=== PATIENT | female | born 1975 | race Caucasian/White ===

== ENCOUNTER 2024-10-02 11:55 | Emergency (ER) | payer OTHER, MEDICARE ==
[~2024-10-02] VITALS: Ht 157.5 cm; Wt 64.9 kg
--- NOTE | 2024-10-02 12:06 | ERN ---
ED Note History of Present Illness Stated Complaint: ALTERED MENTAL STATUS Chief Complaint: Altered Mental Status Time Seen by MD: 11:56 Dictation: PATIENT IS A 49-YEAR-OLD FEMALE WHO IS A POOR HISTORIAN HERE WITH HER FRIEND. HE BROUGHT HER IN BECAUSE SHE HAD A FALL ON SATURDAY AND WAS FOUND ON THE GROUND. SHE WAS TRANSPORTED TO [facility] IN [place] AND SIGNED OUT AGAINST MEDICAL ADVICE THE NEXT DAY. HE STATES SHE LIVES BY HERSELF HOWEVER SINCE THEN SHE HAS HAD ALTERED MENTAL STATUS AND HAS BEEN INCONTINENT OF URINE. SHE IS ABLE TO NABILA ANSWER SIMPLE QUESTIONS HOWEVER SHE HAS A AN ABRASION NOTED TO HER LEFT LATERAL ORBITAL AREA. SPEECH IS CLEAR SHE IS MOVING ALL EXTREMITIES. PUPILS ARE EQUAL IN TRIAGE NO HEMOTYMPANUM NO MIDLINE SPINE PAIN. PATIENT TEARFUL WITH QUESTIONING ABOUT WHAT HAPPENED. THE MAN WHO WAS WITH HER SAID THAT HER MOTHER WANTED HER BROUGHT TO [facility] FOR FURTHER EVALUATION AND TREATMENT. Allergies: Coded Allergies: No Known Drug Allergies (Verified Allergy, Unknown, 03/19/16) Past Medical History Past Medical History: Unable to Obtain Surgical History: Unknown History: Not Applicable RN Note Reviewed/Agreed w/PFSH: Yes Review of System Dictation CONSTITUTIONAL: NEGATIVE EXCEPT FOR HPI HEAD/FACE: NEGATIVE EXCEPT FOR HPI EENT: NEGATIVE EXCEPT FOR HPI RESPIRATORY: NEGATIVE EXCEPT FOR HPI GASTROINTESTINAL/ABDOMINAL: NEGATIVE EXCEPT FOR HPI GENITOURINARY: NEGATIVE EXCEPT FOR HPI INCONTINENT OF URINE MUSCULOSKELETAL: NEGATIVE EXCEPT FOR HPI INTEGUMENTARY: NEGATIVE EXCEPT FOR HPI NEUROLOGICAL/PSYCH: NEGATIVE EXCEPT FOR HPI ALTERED MENTAL STATUS HEMATOLOGIC/LYMPHATIC: NEGATIVE EXCEPT FOR HPI ALL SYSTEMS NEGATIVE, EXCEPT NOTED ABOVE. 13 POINT REVIEW OF SYSTEMS ASSESSED AND ALL NEGATIVE EXCEPT FOR ABOVE. Initial Vital Sign VS Vital Signs Date Time Temp Pulse Resp B/P (MAP) Pulse Ox O2 Delivery O2 Flow Rate FiO2 10/02/24 11:56 98.4 80 18 143/90 98 Room Air 0 Physical Exam Dictation VITAL SIGNS REVIEWED GENERAL APPEARANCE: ALERT, ORIENTED X TWO. ABRASION TO LEFT LATERAL ORBITAL AREA. EOMS INTACT PERRLA. EYES: PERRL, PINK CONJUNCTIVAS, EYELID NO TRAUMA, ANTERIOR CHAMBER WITH ARCUS SENILIS. EARS: PINNAS INTACT AND NO SIGNS OF TRAUMA OR ERYTHEMA EAR CANALS CLEAR AND NO DISCHARGE TM NO ERYTHEMA NO HEMOTYMPANUM NOSE: NO DISCHARGE, NO BLEEDING. OROPHARYNX: MOUTH NORMAL, TONGUE PINK, PHARYNX CLEAR,NO ERYTHEMA, TONSILS NO EXUDATES, NO ABSCESSES NOTED, MUCOUS MEMBRANE MOIST NECK: SUPPLE, NON-TENDER, NO THYROMEGALY, NO MASSES, NO JVD, NO BRUITS NO MIDLINE SPINE PAIN BREAST:DEFERRED CHEST:NO TENDERNESS, NO CREPITUS, NO PARADOXICAL MOVEMENT, NO RETRACTIONS LUNGS:CLEAR, WELL-VENTILATED, SYMMETRIC, NO RALES, NO WHEEZING, NO RHONCHI, NO STRIDOR, GOOD BREATH SOUNDS BILATERALLY HEART: REGULAR RATE, REGULAR RHYTHM, NO MURMUR, NO GALLOPS VASCULAR: NO PERIPHERAL EDEMA, ABDOMEN: SOFT, POSITIVE BOWEL SOUNDS, NONDISTENDED, NO GUARDING, NONTENDER, NO REBOUND, NO MASSES NO HEPATOMEGALY, NO SPLENOMEGALY, NO TOM'S SIGN, NO HERNIAS. RECTAL: DEFERRED GENITAL: DEFERRED NEUROLOGICAL: NORMAL SPEECH, MOTOR FUNCTION INTACT, SENSORY FUNCTION INTACT PATIENT ALERT AND ORIENTED TIMES 2-3 HOWEVER MENTATION APPEAR SLOW SHE IS FOLLOWING COMMANDS AND ANSWERING QUESTIONS STATES SHE COULD NOT RECALL WHAT HAPPENED ON THE FALL MUSCULOSKELETAL: NECK NONTENDER, FULL RANGE OF MOTION, BACK NONTENDER, FULL RANGE OF MOTION, EXTREMITIES: NONTENDER, FULL RANGE OF MOTION SKIN: COLOR PINK, DRY, NO TURGOR, NO RASH, NO LACERATIONS, NO ABRASIONS, NO CONTUSIONS. LYMPHATIC: DEFERRED Results (Laboratory/Radiology) Laboratory/Radiology Laboratory Tests Test 10/02/24 12:09 10/02/24 12:33 White Blood Count 6.5 K/uL (4.8-10.8) Red Blood Count 3.99 MIL/uL (4.00-5.50) L Hemoglobin 11.8 g/dL (12.0-16.0) L Hematocrit 34.4 % (36-48) L Mean Corpuscular Volume 86.2 fL (79-99) Mean Corpuscular Hemoglobin 29.6 pg (27.0-33.0) Mean Corpuscular Hemoglobin Concent 34.3 g/dL (32.0-36.0) Red Cell Distribution Width 12.2 % (11.0-15.5) Platelet Count 240 K/uL (130-400) Mean Platelet Volume 10.3 fL (7.5-10.5) Immature Granulocyte % (Auto) 0.3 % (0-1) Neutrophils (%) (Auto) 74.5 % (40.0-77.0) Lymphocytes (%) (Auto) 16.2 % (21.0-51.0) L Monocytes (%) (Auto) 8.3 % (3.0-13.0) Eosinophils (%) (Auto) 0.2 % (0.0-8.0) Basophils (%) (Auto) 0.5 % (0.0-5.0) Neutrophils # (Auto) 4.8 K/uL (1.8-7.7) Lymphocytes # (Auto) 1.1 K/uL (1.0-4.8) Monocytes # (Auto) 0.5 K/uL (0.1-1.0) Eosinophils # (Auto) 0.01 K/uL (0.00-0.70) Basophils # (Auto) 0.03 K/uL (0.00-0.20) Absolute Immature Granulocyte (auto 0.02 K/uL (0-1) Nucleated Red Blood Cells 0.0 % (0.0-0.19) Sodium Level 142 mmol/L (136-145) Potassium Level 3.0 mmol/L (3.5-5.1) *L Chloride Level 105 mmol/L (101-111) Carbon Dioxide Level 28 mmol/L (21-32) Blood Urea Nitrogen 7 mg/dL (7-18) Creatinine 0.5 mg/dL (0.5-1.0) Glomerular Filtration Rate Calc 115 mL/min (>90) Random Glucose 123 mg/dL (70-105) H Total Calcium 9.1 mg/dL (8.5-10.1) Ammonia < 10 umol/L (11-32) L Troponin I High Sensitivity 7 ng/L (4-50) Serum Alcohol < 3 mg/dL (0-10) Urine Color YELLOW (YELLOW) Urine Appearance CLOUDY (CLEAR) H Urine pH 6.5 (5.0-8.0) Urine Specific [place] 1.028 (1.001-1.031) Urine Protein 70 mg/dL (NEGATIVE) H Urine Glucose (UA) NEGATIVE mg/dL (NEGATIVE) Urine Ketones 150 mg/dL (NEGATIVE) H Urine Occult Blood +- (TRACE) (NEGATIVE) H Urine Nitrate NEGATIVE (NEGATIVE) Urine Bilirubin NEGATIVE mg/dL (NEGATIVE) Urine Urobilinogen 2.0 mg/dL (0.2-1.0) H Urine Leukocyte Esterase 500 Jose/uL (NEGATIVE) H Urine RBC 11-25 /HPF (0-1) H Urine WBC 51-100 /HPF (0-1) H Urine Squamous Epithelial Cells MANY /HPF (0-2) Urine Non-Squamous Epithelial Cells 2-5 /HPF (0-2) Urine Bacteria None /HPF (None Seen) Urine Opiates Screen NEGATIVE (NEGATIVE) Urine Barbiturates Screen NEGATIVE (NEGATIVE) Urine Phencyclidine Screen NEGATIVE (NEGATIVE) Urine Amphetamines Screen NEGATIVE (NEGATIVE) Urine Benzodiazepines Screen NEGATIVE (NEGATIVE) Urine Cocaine Screen NEGATIVE (NEGATIVE) Urine Marijuana (THC) Screen POSITIVE (NEGATIVE) H 1432/CT OF THE HAVE NEGATIVE READ BY HUGO RADIOLOGIST Labs Reviewed?: Yes EKG: (+) NSR EKG Comment: EKG NORMAL SINUS RHYTHM/HEART RATE 81/AXIS NORMAL/NO ECTOPY ED Course ED Course Orders Procedure Category Date Status Time Ct Head/Brain W/O CT 10/02/24 Resulted Contrast 11:57 Ammonia LAB 10/02/24 Complete 11:57 Drug Screen Urine LAB 10/02/24 Complete 11:57 Cbc With Differential LAB 10/02/24 Complete 11:57 Troponin I High LAB 10/02/24 Complete Sensitivity 11:57 Urinalysis Profile LAB 10/02/24 Complete 11:57 12 Lead Ekg Tracing- EKG 10/02/24 Complete Technical 11:57 Basic Metabolic Panel LAB 10/02/24 Complete 11:57 Alcohol, Blood LAB 10/02/24 Complete 12:01 12 Lead Ekg Tracing- EKG 10/02/24 Logged Technical 12:14 Potassium Bicarb/Cit PHA 10/02/24 Complete Ac 25meq (K-Lyte Ta 13:30 Culture Urine PATRICIA 10/02/24 In Process 14:23 Amox/Clav 875/125mg PHA 10/02/24 Complete Tab (Augmentin 875-1 14:56 Current Medications Medications (Trade) Dose Ordered Sig/Telma Route PRN Reason Start Time Stop Time Status Last Admin Dose Admin Amoxicillin/ Clavulanate Potassium (Augmentin 875-125 Tablet) 1 each ONCE STAT PO 10/02/24 14:56 10/02/24 14:59 DC 10/02/24 15:15 Potassium Bicarbonate (K-Lyte Tablet Eff 25 Meq Tablet.eff) 25 meq ONCE ONCE PO 10/02/24 13:30 10/02/24 13:31 DC 10/02/24 14:34 Vital Signs Date Time Temp Pulse Resp B/P (MAP) Pulse Ox O2 Delivery O2 Flow Rate FiO2 10/02/24 11:56 98.4 80 18 143/90 98 Room Air 0 1500/NO CHANGE IN MENTAL STATUS AT THIS TIME. CT LABS AMMONIA DRUG SCREEN NEGATIVE EXCEPT FOR MARIJUANA. MOTHER CALLED AND SPOKE TO QUINCY MUD JACK NOZZLE WORKER NURSE AND TOLD QUINCY THE PATIENT LAST NIGHT WAS HAVING DELUSIONS OF PERSECUTION AND SOMEBODY WAS OUT TO KILLER. PATIENT HAS A HISTORY OF BIPOLAR AND SCHIZOPH MIKE. WE WILL HAVE PATIENT IS SCREENED BY ALISON.1804/ 180/PATIENT NOW ALERT AND ORIENTED X4 SPEECH IS CLEAR. CONSTANCE ROSAS HERE AND PATIENT WAS SCREENED FOR INPATIENT PLACEMENT AND WAS REFUSED. SHE DID NOT MEET CRITERIA AT THIS TIME PATIENT AGREES TO FOLLOW UP WITH THEM OUTPATIENT. SHE WILL BE DISCHARGED HOME TO FAMILY TO FOLLOW UP IN THE NEXT FEW DAYS. Medical Decision Making MDM MDM: DIFFERENTIAL DIAGNOSIS: CLOSED HEAD INJURY/CONCUSSION/SUBDURAL HEMATOMA/POLYDRUG ABUSE/ELECTROLYTE IMBALANCE/DEHYDRATION/ALCOHOL INTOXICATION RATIONALE: TESTS CONSIDERED AND ORDERED SECONDARY TO SHARED DECISION MAKING INCLUDE: EKG/LABS/RADIOLOGY PREVIOUS OUTSIDE RECORDS REVIEWED: OLD ER VISITS. RISK OF COMPLICATION AND/OR MORBIDITY OR MORTALITY OF PATIENT MANAGEMENT: NONE MEDICATIONS-PER MEDICATION RECONCILIATION NEED FOR HOSPITALIZATION: PATIENT DOES NOT MEET CRITERIA FOR HOSPITALIZATION. NO NEED FOR EMERGENCY MAJOR/MINOR SURGERY: NO THERE ARE NO SOCIAL CONCERNS WITH THIS PATIENT. PRESCRIPTION DRUG MANAGEMENT AUGMENTIN/K-DUR PRESCRIPTIONS WILL INCLUDE SYMPTOMATIC CARE PATIENT'S PRIOR EXTERNAL MEDICAL RECORDS FROM OTHER ER VISITS WERE REVIEWED BY ME INDICATED. PRIOR TESTING AND RESULTS FROM PREVIOUS VISITS WERE REVIEWED. PRIOR TESTS WERE TAKEN INTO ACCOUNT WITH MEDICAL DECISION MAKING AND RESOURCE UTILIZATION, INDEPENDENT HISTORIAN/HISTORIANS WERE USED TO OBTAIN COMPLETE MEDICAL HISTORY. I INDEPENDENTLY INTERPRETED THE TEST THAT WERE PERFORMED, RESULTS WERE REVIEWED BY ME AND CONSIDERED FINDINGS ON RADIOLOGY IF ORDERED. MEDICAL MANAGEMENT AND EXAMINATION INTERPRETATION DISCUSSIONS WERE HAD BY ME WITH OTHER QUALIFIED HEALTHCARE PROFESSIONALS INDICATED FOR THE PATIENT'S CARE. DX & DISP Disposition: Discharge Departure Impression: Primary Impression: Facial contusion Additional Impressions: Acute cystitis with hematuria, Hypokalemia, Dehydr ation, Concussion Condition: Stable Scripts Potassium Chloride (K-Dur/Klor-Con) 20 Meq Ertab 20 MEQ PO BID for 3 Days, #6 TAB.EC Prov: KENYETTA ROBERTS GOLD MINER BLASTING 10/02/24 Amoxicillin/Potassium Clav (Amox Tr-K Clv 875-125 mg Tab) 875 Mg-125 Mg Tablet 1 EACH PO BID for 5 Days, #10 TAB 0 Refills Prov: KENYETTA ROBERTS NP 10/02/24 Additional Instructions: FOLLOW-UP WITH PRIMARY CARE PROVIDER IN 1 TO 2 DAYS. TAKE MEDICATIONS DIRE CTED HERE IN THE EMERGENCY ROOM. OKAY TO CONTINUE HOME MEDICATIONS UNLESS OTHERWISE DISCUSSED DURING YOUR VISIT IN THE EMERGENCY ROOM TODAY. RETURN TO YOUR NEAREST EMERGENCY ROOM IF SYMPTOMS WORSEN OR IF THERE IS NO IMPROVEMENT. CALL 911 IF YOU NEED IMMEDIATE ASSISTANCE. TAKE TYLENOL OR MOTRIN [id number] NEEDED AND IF NO CONTRAINDICATIONS ARE PRESENT. INCREASE ORAL HYDRATION. A WOUND CULTURE OR URINE CULTURE WAS ORDERED HERE IN THE EMERGENCY ROOM DEPARTMENT PLEASE FOLLOW-UP WITH PRIMARY CARE PROVIDER AND ADVISE THEM TO GET REPEAT PORTS FROM OUR FACILITY. IF YOU HAD ANY ELIE WRAP/SPLINTS THAT WERE APPLIED HERE, PLEASE DO NOT REMOVE THEM UNTIL YOU SEE YOUR PRIMARY CARE OR SPECIALTY. TAKE AUGMENTIN DIRECTED UNTIL GONE. TAKE K-DUR DIRECTED WITH FOOD TWICE A DAY FOR THE NEXT THREE DAYS UNTIL GONE. CONTINUE ALL YOUR MEDICATIONS AT HOME FROM YOUR DOCTOR, SEE YOUR PRIMARY CARE DOCTOR IN 2-3 DAYS. Referrals: CHICA VILLALOBOS MD (PCP) Time of Disposition: 18:07 I have reviewed the case, and I agree with, Diagnosis and Plan KENYETTA ROBERTS NP Oct 02, 2024 12:05
--- NOTE | 2024-10-02 12:09 | NUR ---
MOTHER PHONE NUMBER
--- NOTE | 2024-10-02 12:12 | NUR ---
AT THIS TIME THE PATIENT IS ORIENTED TO PERSON PLACE TIME AND SITUATION. THE PATIENT IS SOFT SPOKEN. FOLLOWS COMMANDS. ONE TO ONE SITTER DUE TO REPORTED ALTERED MENTAL STATUS.
--- NOTE | 2024-10-02 12:20 | EKG ---
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
[2024-10-02 12:21] LABS: IMMATURE GRANULOCYTE ABSOLUTE 0.02 K/uL (0-1); NUCLEATED RED BLOOD CELLS 0.0 % (0.0-0.19); PLATELET COUNT (AUTO) 240 K/uL (130-400); RED BLOOD CELL COUNT(AUTO) 3.99 MIL/uL (4.00-5.50); RED CELL DISTRIBUTION WIDTH 12.2 % (11.0-15.5); WHITE BLOOD COUNT (AUTO) 6.5 K/uL (4.8-10.8)
--- NOTE | 2024-10-02 12:35 | NUR ---
TOILETED FOR UA. NO URINE. HAD X1 BM
[2024-10-02 12:47] LABS: CREATININE 0.5 mg/dL (0.5-1.0); GLOMERULAR FILTR. RATE CALC 115 mL/min (>90); GLUCOSE,RANDOM 123 mg/dL (70-105); SODIUM SERUM 142 mmol/L (136-145); UREA NITROGEN, BLOOD 7 mg/dL (7-18)
[2024-10-02 14:19] LABS: AMPHET/METH SCREEN,URINE NEGATIVE (NEGATIVE); APPEARANCE,URINE CLOUDY (CLEAR); BARBITURATE SCREEN, URINE NEGATIVE (NEGATIVE); CANNABINOID SCREEN,URINE POSITIVE (NEGATIVE); COCAINE SCREEN,URINE NEGATIVE (NEGATIVE); GLUCOSE, URINE (UA) NEGATIVE (NEGATIVE); LEUKOCYTE ESTERASE ,URINE 500 Leu/uL (NEGATIVE); NITRATE,URINE NEGATIVE (NEGATIVE); OCCULT BLOOD,URINE +- (TRACE) (NEGATIVE)
[2024-10-02 14:22] LABS: ADD UA MICROSCOPIC YES
[2024-10-02 14:25] LABS: SQUAMOUS EPITHELIAL CELL,UR MANY /HPF (0-2)
--- NOTE | 2024-10-02 15:04 | NUR ---
SPOKE TO TROPICAL SCREENER IN REGARDS TO PT, SCREENER WILL BE BY TO COME SCREEN PT.
[2024-10-02] MEDS: AMOX/CLAV 875/125MG TAB PO STA (15:15)
--- NOTE | 2024-10-02 15:16 | NUR ---
PER PATIENT'S MOTHER: THE PATIENT HAS A HISTORY OF SCHIZOPHRENIA. PARENT REPORTS DELUSIONS OF PERSECUTION AND VISUAL HALLUCINATIONS. STATES PATIENT CALLED HER LAST NIGHT TO REPORT PEOPLE WERE IN HER HOME ATTEMPTING TO CAUSE HER HARM.
--- NOTE | 2024-10-02 15:19 | NUR ---
AT THIS TIME THE PATIENT DENIES ANY THOUGHTS OF PERSECUTION OR HALLUCINATIONS.
--- NOTE | 2024-10-02 16:50 | NUR ---
TROPICAL SCREENER BY TO SEE PT.
--- NOTE | 2024-10-02 17:44 | HMCIMG ---
CT OF THE BRAIN WITHOUT CONTRAST CLINICAL INDICATION: Altered mental status status post fall TECHNIQUE: Multiple contiguous axial CT images were obtained through the brain without the administration of intravenous contrast. Coronal and sagittal reconstructions were also obtained. COMPARISON: None available FINDINGS: The ventricular system and cortical sulci demonstrate a normal size and configuration for the patient???s age. There are no intra- or extra-axial collections, mass effect, or midline shift. The basal cisterns are patent. The yates-white matter differentiation is preserved. The midline structures and cervicomedullary junction are unremarkable. There is no evidence of acute intracranial hemorrhage or areas of acute infarction. No fractures are identified. The calvarium is unremarkable in appearance. No suspicious lytic or sclerotic osseous lesions are seen. The visualized portions of the sinuses are well aerated. The mastoid air cells are well pneumatized and well aerated. The visualized orbital structures are unremarkable in appearance. IMPRESSION: Unremarkable noncontrast enhanced CT examination of the brain. /[place]
[2024-10-02] MEDS ORDERED: AMOX1TAB16 PO (18:12)
[2024-10-02] MEDS ORDERED: POTA-192 PO (18:12)
--- NOTE | 2024-10-02 18:18 | NUR ---
CLEARED BY TROPICAL BEHAVIORAL HEALTH SCREENER- DOES NOT MEET CRITERIA
[2024-10-02 18:29] VITALS: BP 127/87; PULSE 79; RESP 14; TEMP 98; O2SAT 99
--- NOTE | 2024-10-02 18:30 | NUR ---
CONTACTED PHONE NUMBER PROVIDED BY PATIENT. RELATIVE AND OR FRIEND STATED WOULD PROVIDE TRANSPORT FOR PATIENT TO HOME.
--- NOTE | 2024-10-02 18:32 | NUR ---
DISCHARGED ALERT AND ORIENTED X4. WRITTEN AND VERBAL INSTRUCTIONS PROVIDED. PATIENT VERBALIZED UNDERSTANDING.
== END 2024-10-02 18:32 | disposition home or self-care (01) ==
LOC: EDH 11:55
DX: S06.0XAA Concussion with loss of consciousness status unknown, initial encounter (principal); N30.01 Acute cystitis with hematuria; E86.0 Dehydration; E87.6 Hypokalemia; X58.XXXA Exposure to other specified factors, initial encounter; Y93.89 Activity, other specified; Y92.89 Other specified places as the place of occurrence of the external cause; Y99.8 Other external cause status
CPT/HCPCS: 36415; 70450; 80048; 80305; 81001; 82140; 84484; 85025; 87086; 93005; 99284

== ENCOUNTER → 2024-10-17 | Emergency (ER) | payer OTHER, MEDICARE ==
[~2024-10-17] VITALS: Ht 157.5 cm; Wt 64.9 kg
[~2024-10-17] MED LIST: 0.9%NACL 1000ML 2,000 ML IV ONE; AMOX1TAB16 PO; POTA-192 PO
[2024-10-17 12:52] LABS: IMMATURE GRANULOCYTE ABSOLUTE 0.01 K/uL (0-1); NUCLEATED RED BLOOD CELLS 0.0 % (0.0-0.19); PLATELET COUNT (AUTO) 310 K/uL (130-400); RED BLOOD CELL COUNT(AUTO) 3.66 MIL/uL (4.00-5.50); RED CELL DISTRIBUTION WIDTH 13.5 % (11.0-15.5); WHITE BLOOD COUNT (AUTO) 6.7 K/uL (4.8-10.8)
[2024-10-17 13:04] LABS: CREATININE 0.5 mg/dL (0.5-1.0); GLOMERULAR FILTR. RATE CALC 115 mL/min (>90); GLUCOSE,RANDOM 94 mg/dL (70-105); SODIUM SERUM 144 mmol/L (136-145); UREA NITROGEN, BLOOD 10 mg/dL (7-18)
[2024-10-17 13:26] LABS: ASPARTATE AMINOTRANSFERASE 91 U/L (10-37); TOTAL PROTEIN, SERUM 6.5 g/dL (6.0-8.3)
[2024-10-17 13:27] LABS: ALCOHOL, BLOOD < 3 mg/dL (0-10)
[2024-10-17 13:28] LABS: CREATINE KINASE, TOTAL 1686 U/L (21-232)
[2024-10-17 13:40] LABS: APPEARANCE,URINE CLEAR (CLEAR); GLUCOSE, URINE (UA) NEGATIVE (NEGATIVE); LEUKOCYTE ESTERASE ,URINE NEGATIVE Leu/uL (NEGATIVE); NITRATE,URINE NEGATIVE (NEGATIVE); OCCULT BLOOD,URINE NEGATIVE (NEGATIVE)
--- NOTE | 2024-10-17 13:40 | ERN ---
ED Note History of Present Illness Stated Complaint: MUSCLE PAIN Chief Complaint: Other Problems Time Seen by MD: 12:31 Time Seen by Midlevel: 12:32 Dictation: 49-year-old female presents to the emergency department for evaluation due to reporting of having been diagnosed with rhabdomyolysis. She states that she was admitted evaluate abscess for which left against medical advise being that she was told that she was going to have complications pertaining to this to the point of possibly causing her life. At that time, she states that she opted to go home. However, she states that her generalized pains have been so persistent that she states that she needs the morphine that she was getting at the other facility on a scheduled basis. Currently, she denies having any fever, chills, nausea, vomiting or diarrhea. The patient states that the rhabdomyolysis must have been from a fall that she sustained clot after having a seizure. Upon initial evaluation, the patient presents with a normal neurological examination. Allergies: Coded Allergies: No Known Drug Allergies (Verified Allergy, Unknown, 03/19/16) Emergency Care DISTRICT SUPERVISOR: None Home Meds Active Scripts Potassium Chloride (K-Dur/Klor-Con) 20 Meq Ertab, 20 MEQ PO BID for 3 Days, #6 TAB.EC Prov:KENYETTA ROBERTS LINE SERVICE PERSON 10/02/24 Amoxicillin/Potassium Clav (Amox Tr-K Clv 875-125 mg Tab) 875 Mg-125 Mg Tablet, 1 EACH PO BID for 5 Days, #10 TAB 0 Refills Prov:KENYETTA ROBERTS LINE SERVICE PERSON 10/02/24 Past Medical History Past Medical History: Cancer, Depression, Hypertension, Unable to Obtain Surgical History: None, Unknown History: Not Applicable RN Note Reviewed/Agreed w/PFSH: Yes Review of System Dictation Constitutional: Generalized body aches Initial Vital Sign VS Vital Signs Date Time Temp Pulse Resp B/P (MAP) Pulse Ox O2 Delivery O2 Flow Rate FiO2 10/17/24 12:21 98.4 78 18 165/97 98 10/17/24 12:44 Room Air* 0 21 Physical Exam Dictation General: awake, alert, NAD Head/Face: Normocephalic, atraumatic Eyes: PERRL, EOMI ENT: Oral mucosa dry Neck: Trachea midline, supple Cardiovascular: RRR, no edema Respiratory: Symmetrical, non-labored Abdomen: Soft, non-tender, non-distended, no guarding. Skin: Warm, dry, good turgor, no rash MS/Extremity: Pulses equal, no cyanosis, neurovascular intact, FROM Neuro: COAx4, GCS 15, steady gait, Psych: Normal behavior, mood, and affect normal Results (Laboratory/Radiology) Laboratory/Radiology Laboratory Tests Test 10/17/24 12:48 10/17/24 13:32 White Blood Count 6.7 K/uL (4.8-10.8) Red Blood Count 3.66 MIL/uL (4.00-5.50) L Hemoglobin 10.8 g/dL (12.0-16.0) L Hematocrit 33.6 % (36-48) L Mean Corpuscular Volume 91.8 fL (79-99) Mean Corpuscular Hemoglobin 29.5 pg (27.0-33.0) Mean Corpuscular Hemoglobin Concent 32.1 g/dL (32.0-36.0) Red Cell Distribution Width 13.5 % (11.0-15.5) Platelet Count 310 K/uL (130-400) Mean Platelet Volume 9.9 fL (7.5-10.5) Immature Granulocyte % (Auto) 0.1 % (0-1) Neutrophils (%) (Auto) 56.6 % (40.0-77.0) Lymphocytes (%) (Auto) 32.3 % (21.0-51.0) Monocytes (%) (Auto) 7.9 % (3.0-13.0) Eosinophils (%) (Auto) 2.1 % (0.0-8.0) Basophils (%) (Auto) 1.0 % (0.0-5.0) Neutrophils # (Auto) 3.8 K/uL (1.8-7.7) Lymphocytes # (Auto) 2.2 K/uL (1.0-4.8) Monocytes # (Auto) 0.5 K/uL (0.1-1.0) Eosinophils # (Auto) 0.14 K/uL (0.00-0.70) Basophils # (Auto) 0.07 K/uL (0.00-0.20) Absolute Immature Granulocyte (auto 0.01 K/uL (0-1) Nucleated Red Blood Cells 0.0 % (0.0-0.19) Sodium Level 144 mmol/L (136-145) Potassium Level 4.3 mmol/L (3.5-5.1) Chloride Level 107 mmol/L (101-111) Carbon Dioxide Level 29 mmol/L (21-32) Blood Urea Nitrogen 10 mg/dL (7-18) Creatinine 0.5 mg/dL (0.5-1.0) Glomerular Filtration Rate Calc 115 mL/min (>90) Random Glucose 94 mg/dL (70-105) Total Calcium 9.0 mg/dL (8.5-10.1) Total Bilirubin 0.1 mg/dL (0.2-1.0) L Aspartate Amino Transf (AST/SGOT) 91 U/L (10-37) H Alanine Aminotransferase (ALT/SGPT) 106 U/L (12-78) H Alkaline Phosphatase 62 U/L (50-136) Total Creatine Kinase 1686 U/L (21-232) *H Total Protein 6.5 g/dL (6.0-8.3) Albumin 3.2 g/dL (3.5-5.0) L Serum Alcohol < 3 mg/dL (0-10) Urine Color LIGHT-YELLOW (YELLOW) Urine Appearance CLEAR (CLEAR) Urine pH 7.5 (5.0-8.0) Urine Specific [place] 1.012 (1.001-1.031) Urine Protein NEGATIVE mg/dL (NEGATIVE) Urine Glucose (UA) NEGATIVE mg/dL (NEGATIVE) Urine Ketones NEGATIVE mg/dL (NEGATIVE) Urine Occult Blood NEGATIVE (NEGATIVE) Urine Nitrate NEGATIVE (NEGATIVE) Urine Bilirubin NEGATIVE mg/dL (NEGATIVE) Urine Urobilinogen 0.2 mg/dL (0.2-1.0) Urine Leukocyte Esterase NEGATIVE Jose/uL Urine Opiates Screen NEGATIVE (NEGATIVE) Urine Barbiturates Screen NEGATIVE (NEGATIVE) Urine Phencyclidine Screen NEGATIVE (NEGATIVE) Urine Amphetamines Screen NEGATIVE (NEGATIVE) Urine Benzodiazepines Screen POSITIVE (NEGATIVE) H Urine Cocaine Screen POSITIVE (NEGATIVE) H Urine Marijuana (THC) Screen POSITIVE (NEGATIVE) H Labs Reviewed?: Yes ED Course ED Course Orders Procedure Category Date Status Time Alcohol, Blood LAB 10/17/24 Complete 12:36 Cbc With Differential LAB 10/17/24 Complete 12:36 Comprehensive LAB 10/17/24 Complete Metabolic Panel 12:36 Urinalysis Profile LAB 10/17/24 Complete 12:36 Drug Screen Urine LAB 10/17/24 Complete 12:36 Creatine Kinase, Total LAB 10/17/24 Complete 12:36 0.9%Nacl 1000ml (Ns PHA 10/17/24 In Process 1000ml) 14:00 Current Medications Medications (Trade) Dose Ordered Sig/Telma Route PRN Reason Start Time Stop Time Status Last Admin Dose Admin Sodium Chloride 2,000 ml @ 0 mls/hr ONCE ONCE IV 10/17/24 14:00 10/17/24 14:01 Vital Signs Date Time Temp Pulse Resp B/P (MAP) Pulse Ox O2 Delivery O2 Flow Rate FiO2 10/17/24 12:44 98.1 87 19 119/74 100 Room Air* 0 21 10/17/24 12:21 98.4 78 18 165/97 98 Medical Decision Making MDM MDM: Differential diagnosis: Rhabdomyolysis, electrolyte imbalance, acute kidney injury. Rationale: Tests considered and ordered secondary to shared decision making include: Previous outside records reviewed: Old ER visits. Risk of complication and/or morbidity or mortality of patient management: None Medications-Per medication reconciliation Need for hospitalization: Patient does not meet criteria for hospitalization. Need for emergency major/minor surgery: No There are no social concerns with this patient. Prescription drug management Prescriptions will include symptomatic care Patient's prior external medical records from other ER visits were reviewed by me as indicated. Prior testing and results from previous visits were reviewed. Prior tests were taken into account with medical decision making and resource utilization, independent historian/historians were used to obtain complete medical history. I independently interpreted the test that were performed, results were reviewed by me and considered findings on radiology if ordered. Medical management and examination interpretation discussions were had by me with other qualified healthcare professionals as indicated for the patient's care. The patient was noted to have a CK of 1686 for which she is encouraged to continue with increased fluids at home. She is also noted to be positive for cocaine and marijuana. DX & DISP Disposition: Discharge Departure Impression: Primary Impression: Rhabdomyolysis Additional Impressions: Cocaine use, Marijuana use Condition: Stable Referrals: CHICA VILLALOBOS MD (PCP) Time of Disposition: 13:59 JAMAR CARBALLO Oct 17, 2024 13:40
[2024-10-17 13:43] LABS: ADD UA MICROSCOPIC NO
[2024-10-17 13:47] LABS: AMPHET/METH SCREEN,URINE NEGATIVE (NEGATIVE); BARBITURATE SCREEN, URINE NEGATIVE (NEGATIVE); CANNABINOID SCREEN,URINE POSITIVE (NEGATIVE); COCAINE SCREEN,URINE POSITIVE (NEGATIVE)
--- NOTE | 2024-10-17 14:01 | NUR ---
PATIENT WAS DC'D BY JAMAR CARBALLO ONCOLOGY REGISTRAR PATIENT WAS TOLD TCK WAS ELEVATED, PATIENT WAS UPSET ABOUT GETTING TYLENOL PO FOR PAIN DUE TO TOXICOLOGY REPORT, PATIENT AMBULATED OUT OF ED
[2024-10-17 14:03] VITALS: BP 125/76; PULSE 84; RESP 20; TEMP 98.1; O2SAT 99
== END ==
LOC: EDH 12:14
DX: M62.82 Rhabdomyolysis (principal); F14.90 Cocaine use, unspecified, uncomplicated; F12.90 Cannabis use, unspecified, uncomplicated; Z79.899 Other long term (current) drug therapy
CPT/HCPCS: 36415; 80053; 80305; 81003; 82550; 85025; 99284